=== PATIENT | male | born 1985 | race Caucasian/White ===

== ENCOUNTER 2016-08-08 12:20 | Emergency (ER) | payer OTHER ==
[2016-08-08 12:40] VITALS: BP 115/83
--- NOTE | 2016-08-08 19:35 | ED ---
Bruno Castellano Janilya, scribed for Vin Diane MD on 08/08/16 at 1228 . Substance Abuse/Use - HPI Summary HPI Summary: A 31 y/o male was BIBA for heroin abuse. Pt states that he injected heroin at about 0630 today and went to sleep. Pt complains that he was suddenly awoken and taken here. Pt denies any infection on his arms on site of injection. Per police, pt's parents called the police because pt was not breathing and appeared purple. Pt is given Narcan. - History Of Current Complaint Stated Complaint: OVERDOSE Time Seen by Provider: 08/08/16 12:24 Hx Obtained From: Patient Overdose Characteristics: IV Severity Initially: Moderate Severity Currently: Moderate - Allergies/Home Medications Allergies/Adverse Reactions: Allergies Allergy/AdvReac Type Severity Reaction Status Date / Time No Known Allergies Allergy Verified 07/13/16 17:57 PMH/Surg Hx/FS Hx/Imm Hx Infectious Disease History: Denies: Traveled Outside the [place] in Last 30 Days - Family History Known Family History: Positive: Other - anxiety - Social History Alcohol Use: Weekly Substance Use Type: Reports: Heroin Smoking Status (MU): Current Every Day Smoker Review of Systems Negative: Fever Positive: Anxious All Other Systems Reviewed And Are Negative: Yes Physical Exam Triage Information Reviewed: Yes Vital Signs On Initial Exam: Initial Vitals Temp Pulse Resp BP Pulse Ox 99.1 F 120 20 115/83 96 08/08/16 12:34 08/08/16 12:34 08/08/16 12:34 08/08/16 12:34 08/08/16 12:34 Vital Signs Reviewed: Yes Appearance: Positive: Well-Appearing, No Pain Distress Skin: Positive: Warm, Skin Color Reflects Adequate Perfusion, Dry, Other - Track huang on left antecubital area Head/Face: Positive: Normal Head/Face Inspection Eyes: Positive: Normal ENT: Positive: Normal ENT inspection Neck: Positive: Supple, Nontender Respiratory/Lung Sounds: Positive: Clear to Auscultation, Breath Sounds Present Cardiovascular: Positive: RRR Abdomen Description: Positive: Nontender, Soft Bowel Sounds: Positive: Present Musculoskeletal: Positive: Normal Neurological: Positive: Normal Psychiatric: Positive: Anxious, Other - agitated and angry Diagnostics - Vital Signs Vital Signs Temp Pulse Resp BP Pulse Ox 08/08/16 12:34 99.1 F 120 20 115/83 96 - Laboratory Lab Statement: Any lab studies that have been ordered have been reviewed, and results considered in the medical decision making process. Course/Dx - Course Course Of Treatment: Cornelio Perez presented by EMS and police in an agitated condition. His parents called 911 because he was not breathing and turning purple. EMS found him unresponsive and adminitered narcan which precipitated his current state. He was observed for about 1 hour and 10 minutes until he became too beligerent and walked out refusing all care. He is sober and competant and I have no choice but to honor his wishes. The narcan should be mostly worn off. - Diagnoses Provider Diagnoses: Heroin abuse Discharge - Discharge Plan Condition: Stable Disposition: HOME Additional Instructions: IF YOU CONTINUE TO DO HEROIN, YOU ARE MOST LIKELY TO . The documentation as recorded by the Bruno west Janilya accurately reflects the service I personally performed and the decisions made by me, Vin Diane MD.
== END 2016-08-08 13:09 | disposition home or self-care (01) ==
LOC: ED 12:20
DX: F11.10 Opioid abuse, uncomplicated (principal); F41.9 Anxiety disorder, unspecified; F17.210 Nicotine dependence, cigarettes, uncomplicated
CPT/HCPCS: 99283

== ENCOUNTER 2017-08-14 01:10 | Inpatient (IN) | payer OTHER ==
[2017-08-14] MEDS ORDERED: NS 0.9% 1000 ML* 1,000 ML IV ONE ×3 (01:33→04:05)
[2017-08-14] MEDS ORDERED: LORazepam INJ* 2 MG/ML 1 ML VIAL ONE ×2 (02:10→03:45)
[2017-08-14] MEDS: LORazepam INJ* 2 MG/ML 1 ML VIAL IM ONE ×2 (02:16→03:50)
[2017-08-14] MEDS ORDERED: KETAMINE HCL* 50 MG/ML 10 ML VIAL IM ONE (02:43)
[2017-08-14] MEDS ORDERED: Rocuronium* 10 MG/ML VIAL ONE ×2 (03:05→04:15)
[2017-08-14] MEDS ORDERED: Propofol* 100 ML ONE (03:05)
[2017-08-14] MEDS ORDERED: Rocuronium* 10 MG/ML VIAL IV ONE (04:17)
[2017-08-14 04:19] LABS: ABS Basophils 0 10^3/ul (0-0.2); ABS Eosinophils 0.1 10^3/ul (0-0.6); ABS Monocytes 1.2 10^3/ul (0-0.8); ABS Neutrophils 8.1 10^3/ul (1.5-7.7); ABS Nucleated RBC 0 10^3/ul; Eosinophil % 1.2 % (0-6); Hematocrit 43 % (42-52); Hemoglobin 14.6 g/dl (14.0-18.0); Lymphocyte % 17.1 % (25-47); Mean Corpuscular HGB Conc 34 g/dl (31-36); Mean Corpuscular Hemoglobin 31 pg (27-31); Mean Corpuscular Volume 91 fL (80-94); Mean Platelet Volume 9 um3 (7.4-10.4); Nucleated Red Blood Cells % 0; Platelet Count 268 10^3/ul (150-450); Red Cell Distribution Width 13 % (10.5-15); White Blood Count 11.4 10^3/ul (3.5-10.8)
[2017-08-14 04:24] LABS: Urine Appearance Clear; Urine Blood Negative (Negative); Urine Color Yellow; Urine Ketones Trace (Negative); Urine Protein 1+(30 mg/dL) (Negative); Urine Specific Gravity 1.027 (1.010-1.030); Urine Urobilinogen Negative (Negative)
[2017-08-14 04:34] LABS: EGFR Non-African American 82.7 (>60)
[2017-08-14] MEDS ORDERED: Ondansetron INJ* 2 MG/ML VIAL IV PRN (04:49)
[2017-08-14] MEDS: Propofol* 100 ML IV SCH ×7 (05:20→23:27)
--- NOTE | 2017-08-14 05:56 | ED ---
Tim Castellano Tecjoon, scribed for Augustine Helm MD on 08/14/17 at 0241 . Psychiatric Complaint - HPI Summary HPI Summary: This patient is a 32 year old male brought to [facility] by father with a chief complaint of psychiatric complaint since around [id number]. Patients father states that he exhibited hyperactive behavior around this time and became more and more wound up. Patient started to have motor control issues, losing balance. Father found him on floor. Father reports vomiting. Patient denies headache, abd pain. Patient denies taking more than prescribed amount of drugs. Patient states he smokes weed everyday and smoked marijuana today. HPI Limited due to Level 5 Caveat: AMS - History Of Current Complaint Chief Complaint: EDGeneral Time Seen by Provider: 08/14/17 02:21 Hx Obtained From: Patient Onset/Duration: Gradual Onset, Lasting Hours, Still Present Timing: Constant Severity Currently: Moderate Character: Lethargic, Stuporous Aggravating Factor(s): Nothing Alleviating Factor(s): Nothing - Allergies/Home Medications Allergies/Adverse Reactions: Allergies Allergy/AdvReac Type Severity Reaction Status Date / Time No Known Allergies Allergy Verified 11/24/16 16:31 PMH/Surg Hx/FS Hx/Imm Hx Previously Healthy: Yes - PMHx Limited due to Level 5 Caveat: AMS Endocrine/Hematology History: Denies: Hx Diabetes, Hx Thyroid Disease Cardiovascular History: Denies: Hx Hypertension Respiratory History: Denies: Hx Asthma, Hx Chronic Obstructive Pulmonary Disease (COPD) GI History: Denies: Hx Ulcer EENT History: Denies: Hx Deafness Infectious Disease History: No Infectious Disease History: Denies: Hx Clostridium Difficile, Hx Hepatitis, Hx Human Immunodeficiency Virus (HIV), Hx of Known/Suspected MRSA, Hx Shingles, Hx Tuberculosis, Traveled Outside the [place] in Last 30 Days - Family History Known Family History: Positive: Other - anxiety Negative: Cardiac Disease, Hypertension - Social History Lives: With Family Alcohol Use: Rare Hx Substance Use: Yes Substance Use Type: Reports: Heroin, Marijuana Hx Tobacco Use: Yes Smoking Status (MU): Current Every Day Smoker Review of Systems Negative: Fever Positive: Vomiting. Negative: Abdominal Pain Negative: Headache All Other Systems Reviewed And Are Negative: No - Comments Additional Review of Systems Comments: ROS Limited due to Level 5 Caveat: AMS Physical Exam - Summary Physical Exam Summary: Appearance: repetitive yawning, distressed. Anxious. Unable to redirect. Skin: warm, diaphoretic, reflects adequate perfusion. track huang on right wrist and left antecubital region Head/face: normal Eyes: multidirectional nystagmus, pupils reactive ENT: normal Neck: supple, non-tender Respiratory: CTA, breath sounds present Cardiovascular: tachy/RR, pulses symmetrical Abdomen: non-tender, soft Musculoskeletal: Psychomotor agitation without muscular rigidity. ataxia, nystagmus Neuro: unable to answer questions, not A&O PE Limited due to Level 5 Caveat: AMS Triage Information Reviewed: No Vital Signs On Initial Exam: Initial Vitals Temp Pulse Resp BP Pulse Ox 97.0 F 83 16 143/91 99 08/14/17 01:12 08/14/17 01:12 08/14/17 01:12 08/14/17 01:12 08/14/17 01:12 Vital Signs Reviewed: No Completion Of Physical Exam Limited Due To: Altered Mental Status, Level 5 Appearance: Negative: Well-Appearing, No Pain Distress - pt distressed, anxious , throwing himself about the bed, Signs of Trauma Head/Face: Positive: Normal Head/Face Inspection ENT: Positive: Hearing grossly normal. Negative: Pharyngeal erythema, Nasal congestion, Nasal drainage Neck: Positive: Supple, Nontender Respiratory/Lung Sounds: Positive: Clear to Auscultation, Breath Sounds Present Procedures - Intubation Time of Intubation: 03:10 - Excited delirium/agitation. Given Ativan and ketamine prior and continued to fight and scream Patient was premedicated with propofol and rocuronium 50mg. Done with fiber optic blade # 3 Intubation Method: orotracheal Tube Size (cm): 8.0 Breath Sounds after Intubation: equal Intubation Complications: no complications Post Intubation Xray: Yes - tube in good position Progress/Xray Impression: RSI with propofol, rocuronium. Placed on vent: AC rate 12, 50%, PEEP 5. Diagnostics - Vital Signs Vital Signs Temp Pulse Resp BP Pulse Ox 08/14/17 02:16 22 08/14/17 01:12 97.0 F 83 16 143/91 99 - Laboratory Lab Results: Lab Results 08/14/17 08/14/17 08/14/17 Range/Units 03:20 04:05 04:05 WBC 11.4 H (3.5-10.8) 10^3/ul RBC 4.70 (4.0-5.4) 10^6/ul Hgb 14.6 (14.0-18.0) g/dl Hct 43 (42-52) % MCV 91 (80-94) fL MCH 31 (27-31) pg MCHC 34 (31-36) g/dl RDW 13 (10.5-15) % Plt Count 268 (150-450) 10^3/ul MPV 9 (7.4-10.4) um3 Neut % (Auto) 70.6 (38-83) % Lymph % (Auto) 17.1 L (25-47) % Mclennan % (Auto) 10.7 H (1-9) % Eos % (Auto) 1.2 (0-6) % Baso % (Auto) 0.4 (0-2) % Absolute Neuts (auto) 8.1 H (1.5-7.7) 10^3/ul Absolute Lymphs (auto) 2.0 (1.0-4.8) 10^3/ul Absolute Monos (auto) 1.2 H (0-0.8) 10^3/ul Absolute Eos (auto) 0.1 (0-0.6) 10^3/ul Absolute Basos (auto) 0 (0-0.2) 10^3/ul Absolute Nucleated RBC 0 10^3/ul Nucleated RBC % 0 Patient Temperature Not Reportable ABG pH 7.34 L (7.35-7.45) ABG pH (Temp Correct) Not Reportable ABG pCO2 50 H (35-45) mmHg ABG pCO2 (Temp Corrct Not Reportable ABG pO2 240 H (80-100) mmHg ABG pO2 (Temp Correct Not Reportable ABG HCO3 25.2 (19-31) mmol/L ABG O2 Saturation 100.2 H (95-98) % ABG Base Excess 0.4 (-2.0-2.0) Respiration Rate 12 O2 Delivery Device vent Ventilator Type 550 Vent Mode cmv FiO2 60 Inspiratory Time 1.0 PEEP 5 Pressure Support Not Reportable Pressure Control Not Reportable EPAP Not Reportable IPAP Not Reportable BiPAP Not Reportable Sodium 141 (133-145) mmol/L Potassium 3.7 (3.5-5.0) mmol/L Chloride 110 (101-111) mmol/L Carbon Dioxide 27 (22-32) mmol/L Anion Gap 4 (2-11) mmol/L BUN 16 (6-24) mg/dL Creatinine 1.03 (0.67-1.17) mg/dL Est GFR ( Amer) 106.3 (>60) Est GFR (Non-Af Amer) 82.7 (>60) BUN/Creatinine Ratio 15.5 (8-20) Glucose 83 (70-100) mg/dL Lactic Acid (0.5-2.0) mmol/L Calcium 9.0 (8.6-10.3) mg/dL Total Bilirubin 0.30 (0.2-1.0) mg/dL AST 20 (13-39) U/L ALT 19 (7-52) U/L Alkaline Phosphatase 71 (34-104) U/L Total Creatine Kinase 242 H (10-223) U/L Total Protein 7.2 (6.4-8.9) g/dL Albumin 4.2 (3.2-5.2) g/dL Globulin 3.0 (2-4) g/dL Albumin/Globulin Ratio 1.4 (1-3) Urine Color Urine Appearance Urine pH (5-9) Ur Specific [place] (1.010-1.030) Urine Protein (Negative) Urine Ketones (Negative) Urine Blood (Negative) Urine Nitrate (Negative) Urine Bilirubin (Negative) Urine Urobilinogen (Negative) Ur Leukocyte Esterase (Negative) Urine WBC (Auto) (Absent) Urine RBC (Auto) (Absent) Urine Bacteria (Absent) Urine Glucose (Negative) Urine Ascorbic Acid (Negative) Salicylates < 2.50 (<30) mg/dL Urine Opiates Screen (None Detect) Acetaminophen < 15 mcg/mL Ur Barbiturates Screen (None Detect) Ur Phencyclidine Scrn (None Detect) Ur Amphetamines Screen (None Detect) U Benzodiazepines Scrn (None Detect) Urine Cocaine Screen (None Detect) U Cannabinoids Screen (None Detect) Serum Alcohol < 10 (<10) mg/dL 08/14/17 08/14/17 08/14/17 Range/Units 04:05 04:05 04:05 WBC (3.5-10.8) 10^3/ul RBC (4.0-5.4) 10^6/ul Hgb (14.0-18.0) g/dl Hct (42-52) % MCV (80-94) fL MCH (27-31) pg MCHC (31-36) g/dl RDW (10.5-15) % Plt Count (150-450) 10^3/ul MPV (7.4-10.4) um3 Neut % (Auto) (38-83) % Lymph % (Auto) (25-47) % Mclennan % (Auto) (1-9) % Eos % (Auto) (0-6) % Baso % (Auto) (0-2) % Absolute Neuts (auto) (1.5-7.7) 10^3/ul Absolute Lymphs (auto) (1.0-4.8) 10^3/ul Absolute Monos (auto) (0-0.8) 10^3/ul Absolute Eos (auto) (0-0.6) 10^3/ul Absolute Basos (auto) (0-0.2) 10^3/ul Absolute Nucleated RBC 10^3/ul Nucleated RBC % Patient Temperature ABG pH (7.35-7.45) ABG pH (Temp Correct) ABG pCO2 (35-45) mmHg ABG pCO2 (Temp Corrct ABG pO2 (80-100) mmHg ABG pO2 (Temp Correct ABG HCO3 (19-31) mmol/L ABG O2 Saturation (95-98) % ABG Base Excess (-2.0-2.0) Respiration Rate O2 Delivery Device Ventilator Type Vent Mode FiO2 Inspiratory Time PEEP Pressure Support Pressure Control EPAP IPAP BiPAP Sodium (133-145) mmol/L Potassium (3.5-5.0) mmol/L Chloride (101-111) mmol/L Carbon Dioxide (22-32) mmol/L Anion Gap (2-11) mmol/L BUN (6-24) mg/dL Creatinine (0.67-1.17) mg/dL Est GFR ( Amer) (>60) Est GFR (Non-Af Amer) (>60) BUN/Creatinine Ratio (8-20) Glucose (70-100) mg/dL Lactic Acid 1.4 (0.5-2.0) mmol/L Calcium (8.6-10.3) mg/dL Total Bilirubin (0.2-1.0) mg/dL AST (13-39) U/L ALT (7-52) U/L Alkaline Phosphatase (34-104) U/L Total Creatine Kinase (10-223) U/L Total Protein (6.4-8.9) g/dL Albumin (3.2-5.2) g/dL Globulin (2-4) g/dL Albumin/Globulin Ratio (1-3) Urine Color Yellow Urine Appearance Clear Urine pH 5.0 (5-9) Ur Specific [place] 1.027 (1.010-1.030) Urine Protein 1+(30 mg/dl) H (Negative) Urine Ketones Trace H (Negative) Urine Blood Negative (Negative) Urine Nitrate Negative (Negative) Urine Bilirubin Negative (Negative) Urine Urobilinogen Negative (Negative) Ur Leukocyte Esterase Negative (Negative) Urine WBC (Auto) Trace(0-5/hpf) (Absent) Urine RBC (Auto) Trace(0-2/hpf) (Absent) Urine Bacteria Absent (Absent) Urine Glucose Negative (Negative) Urine Ascorbic Acid * H (Negative) Salicylates (<30) mg/dL Urine Opiates Screen None detected (None Detect) Acetaminophen mcg/mL Ur Barbiturates Screen None detected (None Detect) Ur Phencyclidine Scrn None detected (None Detect) Ur Amphetamines Screen Presumptive positive H (None Detect) U Benzodiazepines Scrn None detected (None Detect) Urine Cocaine Screen Presumptive positive H (None Detect) U Cannabinoids Screen Presumptive positive H (None Detect) Serum Alcohol (<10) mg/dL Result Diagrams: 08/14/17 04:05 08/14/17 04:05 Lab Statement: Any lab studies that have been ordered have been reviewed, and results considered in the medical decision making process. - Radiology CXR Xray Interpretation: Positive (See Comments) Radiology Interpretation Completed By: ED Physician - CXR reveals, per ED Physician, no acute infiltrate, ET tube and OG tube are appropriate. - CT CT Head CT Interpretation: No Acute Changes - CT Head reveals, per radiologist, IMPRESSION: Normal Exam. ED Physician has reviewed this report. CT Interpretation Completed By: Radiologist Re-Evaluation - Re-Evaluation First Eval Change: Worse - more agitated Second Eval Change: Worse - required restraint, first soft then leather Third Eval Change: Worse - requires intubation Fourth Eval Change: Improved - after intubation, but fighting vent Fifth Eval Change: Improved - improved with increased sedation and paralysis Course/Dx - Course Course Of Treatment: Pt grew increasingly more agitated, ataxic and outraged with unprovoked screaming out and thrashing about. He required restraint first with softs then with 4pt leather restraints. He had been medicated with Ativan with no effect and so >3mg/kg IM ketamine was given and had little to no effect. He was straining against the restraints and streaming unintelligibly. He has known drug use hx and tract huang are seen on his arms. He is on Focalin , and its suspected that he has multi-drug ingestion. His CPKs are expected to rise. Given his repetitive yawning, he may have tried to tx opiate withdrawal with other drugs including amphetamines. He is + for amphetamines, cannabis and cocaine. Father gives hx of heroin, crack cocaine abuse in past. He has not been successful with detox/rehab. Head CT neg. Dr. Carrillo present and assisted with intubation -- he will be admitting patient to ICU. Even on vent he was difficult to control. He was increased on his propofol sedation. We re- paralyzed him given the possibility of rising CPKs and resulting rhabdo. Xrays show ETT appropriate. With paralysis and increased sedation vitals have normalized. - Differential Dx/Clinical Impression Differential Diagnosis/HQI/PQRI: Positive: Acute Psychosis, Drug Overdose/ Intentional, Drug Overdose/Unintentional, Other - posterior infarct, rhabdo, hallucinagenic ingestion Provider Diagnosis: Delirium, Multiple drug overdose, Drug abuse and dependence, Elevated CPK, Ataxia - Physician Notifications Discussed Care Of Patient With: Edwin Carrillo - Hospitalist Time Discussed With Above Provider: 04:34 - We discussed patient care with Dr. Carrillo (Hospitalist) and he agrees to admit the patient. - Critical Care Time Critical Care Time: 75-104 min - excludes seperately billable procedures. Includes mult reevaluations, d/w with father, consult and bedside care. Discharge - Discharge Plan Condition: Critical Disposition: ADMITTED TO [facility] Referrals: Abhinav Dickey, VEST BASTER [Primary Care Provider] - The documentation as recorded by the Tim west Tecjoon accurately reflects the service I personally performed and the decisions made by me, Augustine Helm MD.
[2017-08-14] MEDS: Heparin VIAL(*) 5000 UNITS/ML VIAL (FIVE THOUSAND) SUBCUT SCH ×3 (06:17→22:01)
--- NOTE | 2017-08-14 07:32 | RAD ---
INDICATION: Ataxia COMPARISON: None TECHNIQUE: Noncontrast axial source images were acquired from the skull base to the vertex. FINDINGS: Ventricles/sulci: The ventricles and cisterns are normal in size and configuration for age. Brain parenchyma: There is no focal parenchymal finding, evidence of intracranial mass, or intracranial mass effect. Intracranial hemorrhage:None. Extra-axial spaces: There are no abnormal extra axial fluid collections or evidence of extra-axial mass. Calvarium: There is no calvarial fracture or other calvarial abnormality. Scalp: There is no evidence of scalp or extracalvarial soft tissue abnormality. Paranasal sinuses/mastoid: There is minor ethmoid sinus mucosal thickening. The paranasal sinuses and mastoid air cells are otherwise clear. Other: None. IMPRESSION: NO ACUTE INTRACRANIAL FINDINGS
--- NOTE | 2017-08-14 07:34 | RAD ---
INDICATION: Intubation COMPARISON: None TECHNIQUE: An AP portable view obtained at 0330 hours is submitted. FINDINGS: Bones/Soft Tissues: There are no acute bony findings. There is an endotracheal tube in proper position approximately 4 cm above the travon. Nasogastric tube is coiled in the fundus the stomach. Cardiomediastinal: The cardiomediastinal silhouette is normal. Lungs: There are no infiltrates. Pleura: There are no pleural effusions. Other: None IMPRESSION: NO ACTIVE DISEASE. ENDOTRACHEAL TUBE POSITIONED DESCRIBED.
[2017-08-14] MEDS: Pantoprazole IV* 40 MG IV SCH (08:16)
--- NOTE | 2017-08-14 09:55 | HP ---
CC: Abhinav Dickey NP * ADMISSION HISTORY AND PHYSICAL: DATE OF ADMISSION: 08/14/17 PRIMARY CARE PROVIDER: Abhinav Dickey NP HEALTHCARE PROXY: His father. CODE STATUS: Full. SOURCE OF INFORMATION: History obtained from interview with ED provider as well as the patient's father. RELIABILITY: Fair. CHIEF COMPLAINT: Agitation. HISTORY OF PRESENT ILLNESS: This is a 32-year-old man with past medical history most significant for poly-substance abuse including heroin and crack cocaine. Last presentation to the [facility] was 1 year prior to this admission when he was admitted with heroin overdose, left AMA at that time. He has been in his usual state of health, lives at home with his father and his mother. He is relatively withdrawn, but does have meaningful interactions with his parents. His father notes that his perception of the patient's level of sobriety is unlikely accurate as he had thought the patient to be abstinent at this time, but did note "slips" within the last months with both crack cocaine and heroin. The patient's father denies any knowledge of recent fevers or headaches, nausea or vomiting other than when the patient is withdrawing, but none recently. The patient's father notes that earlier in the afternoon, the patient was appearing more "amped up and hyped" and then complained about not feeling well later in the day. The patient felt that it was related to his Focalin and he thought it would wear off, but throughout the day he became progressively more disordered, was losing balance, was dropping items in the kitchen. The father checked on him in his living quarters, found him lying on the floor and decided to bring him to the hospital where he became increasingly agitated on the way the EMS and/or [facility]. On presentation to the hospital , he was noted to have excessive yawning and ataxia associated with nystagmus. He received Ativan, after which he became incredibly agitated requiring ketamine , which had little effect on his agitation. It was felt the patient was no longer able to protect his airway and emergent intubation was performed by this author under the direct supervision of Dr. Helm. PAST MEDICAL HISTORY: Includes polysubstance abuse including IV drug use and crack cocaine, tobacco use, anxiety, depression. MEDICATIONS: Focalin 40 mg daily. ALLERGIES: To no known medications. FAMILY HISTORY: Notable for anxiety. SOCIAL HISTORY: Lives with his mother and his father. Smokes cigarettes. Polysubstance abuse as noted above, although not to consume alcohol. REVIEW OF SYSTEMS: Unable to obtain other than through the patient's father, was notably negative for all systems review. PHYSICAL EXAMINATION GENERAL: Intubated, sedated. VITAL SIGNS: In the emergency room, 138/94; respiratory rate after intubation 13, prior to intubation 20; he is 98% on 60% FiO2 on a PRV; T-max is 98.2. HEART: He has regular rate and rhythm. No murmurs, rubs, or gallops. LUNGS: Clear to auscultation. ABDOMEN: Soft, nontender, nondistended. EXTREMITIES: Warm and well perfused without clubbing, cyanosis, or edema. No skin breakdown except for several small healing lacerations on the feet. NEUROLOGIC: He is A and O x0, sedated on propofol. His skin has track huang on bilateral forearms. His pupils are reactive to light. Otherwise, remainder of exam unable to obtain. DIAGNOSTIC STUDIES/LAB DATA: Data reviewed, notable for urine with amphetamines, cocaine and cannabis. Serum alcohol, acetaminophen and salicylates are currently pending. BUN 16, creatinine 1.0. Lactic acid 1.4. Total creatine is 242. Blood gas; pH 7.3, pCO2 50, pO2 240. White blood cell count is 11.4, predominantly monocytes, hemoglobin 14.6, platelets 268. Data reviewed. Chest CT with appropriately placed ET tube, otherwise no cardiopulmonary disease. Brain CT, official read pending in the a.m., no evidence of intracranial hemorrhage, subdural hemorrhage on this author's interpretation. Please follow up for a complete read in the morning. EKG, normal sinus rhythm, ventricular rate of 82, normal intervals, no ST or T wave changes, flattening of T waves in aVL. ASSESSMENT AND PLAN: This is a 32-year-old man with past medical history including polysubstance abuse to include intravenous drugs and crack cocaine, presenting with progressive ataxia and altered mental status at home, rapidly becoming agitated in the emergency room, complicated by respiratory failure requiring emergent intubation. 1. Agitation. No history or laboratory evidence to suggest underlying infection such as meningitis, encephalitis or other toxic metabolic insults prior to agitation. In the setting of known polysubstance abuse, I do suspect purposeful or accidental ingestion of medication leading to his presentation. His urine toxicology is remarkable for amphetamines, although these are prescribed at that time in addition to cocaine which is clearly illicit. I suspect further information will be forthcoming if we are able to obtain more history should he continue to improve. 2. Respiratory failure in the setting of inability to protect his own airway. Continue sedation. Currently on propofol, fentanyl as needed. The patient has required significant boluses of propofol in the emergency room, may require second agent to achieve adequate sedation in the ICU. IV Protonix as well as oral care. 3. Polysubstance abuse. Check HCV as well as HIV with father's consent. 4. DVT prophylaxis: Heparin subcu. [id number]/CPS #: [id number] AURELIA
[2017-08-14] MEDS: Chlorhexidine MOUTHWASH 0.12%* 15 ML UDC TOPICAL SCH ×4 (10:50→21:32)
--- NOTE | 2017-08-14 14:00 | PN ---
Critical Care Services: 32 y/o male admitted last night with drug OD (unintentional, and involving multiple drugs, predominantly CLIENT SUCCESS MANAGER stimulants), which produced an agitated confusional state that required heavy sedation and mechanical ventilation. Patient has been stable since admission, and there are no other active issues. Vital Signs: Temp Pulse Resp BP SpO2 FiO2 98.2 F 60 21 125/85 100 50 Physical Exam: Gen: Unresponsive (on propofol) HEENT:Pupils midposition and sluggishly reactive Lungs:clear Extremities:no cyanosis or edema Neuro: Moves all extremities with painful stimulus Fluid Balance (Past 24 Hours): 08/14/17 08/15/17 06:59 06:59 Intake Total 50 1000 Balance 50 1000 Weight 176 lb Intake: IV Fluids 1000 NS (0.9%) 1000 Medicated IV 50 CC - Propofol/Diprivan 50 Labs: 08/14/17 06:10 Hepatitis C Antibody Nonreactive HIV 1&2 Antibody Nonreactive Studies: Urine positive for amphetamines, cocaine, and THC. Nutrition: None (other than calories provided by propofol) Impression: Acute delirium from stimulant drug OD - currently stable on sedation with IV propofol and mechanical ventilation. Plan: Maintain current level of support for at least 24 hours, then (tomorrow AM) awaken and remove from ventilator (if possible). Psych evaluation seems warranted in this case because the patient's poor decision making regarding life choices. Patient's parents visited thyis afternoon, and have been informed of the current situation. Critical Care Time: 35 minutes (not including time spent with patient's parents) .
[2017-08-14] MEDS: fentaNYL* 50 MCG/ML 2 ML VIAL (100 MCG VIAL) IV SLOW PU PRN (19:20)
[2017-08-14] MEDS ORDERED: fentaNYL* 50 MCG/ML 2 ML VIAL (100 MCG VIAL) IV SLOW PU ONE (21:26)
[2017-08-14] MEDS ORDERED: Midazolam* 1 MG/ML 10 ML VIAL (10 MG) IV ONE (21:31)
[2017-08-14] MEDS ORDERED: Midazolam IV for DRIP* 100 MG in NS 0.9% 100 ML* 80 ML IV SCH (22:00)
[2017-08-14] MEDS ORDERED: Midazolam PREMIX BAG 1 MG/ML* 100 MG/100 ML BAG IV SCH (22:00)
[2017-08-15] MEDS: Propofol* 100 ML IV SCH ×3 (01:54→06:26)
[2017-08-15] MEDS: Chlorhexidine MOUTHWASH 0.12%* 15 ML UDC TOPICAL SCH ×3 (01:54→08:17)
[2017-08-15] MEDS: fentaNYL* 50 MCG/ML 2 ML VIAL (100 MCG VIAL) IV SLOW PU PRN ×3 (03:03→06:04)
[2017-08-15] MEDS: Heparin VIAL(*) 5000 UNITS/ML VIAL (FIVE THOUSAND) SUBCUT SCH ×3 (05:48→22:26)
[2017-08-15] MEDS ORDERED: Haloperidol INJ IV/IM* 5 MG/ML AMP ONE ×4 (09:33→12:02)
[2017-08-15] MEDS ORDERED: Succinylcholine* 20 MG/ML 10 ML VIAL ONE ×3 (09:44→20:32)
[2017-08-15] MEDS ORDERED: Haloperidol INJ IV/IM* 5 MG/ML AMP IV SLOW PU PRN (10:00)
[2017-08-15] MEDS ORDERED: Midazolam PREMIX BAG 1 MG/ML* 100 MG/100 ML BAG IV SCH ×2 (10:02→22:59)
[2017-08-15] MEDS: Pantoprazole IV* 40 MG IV SCH (10:23)
[2017-08-15] MEDS ORDERED: Haloperidol INJ IV/IM* 5 MG/ML AMP IV SLOW PU ONE ×2 (10:55→12:00)
[2017-08-15] MEDS ORDERED: LORazepam INJ* 2 MG/ML 1 ML VIAL ONE (12:11)
[2017-08-15] MEDS: chlorproMAZINE INJ* 25 MG/ML 2 ML (50 MG) IV SCH ×4 (13:56→16:42)
[2017-08-15] MEDS ORDERED: chlorproMAZINE INJ* 25 MG/ML 2 ML (50 MG) IV PRN (17:06)
--- NOTE | 2017-08-15 17:13 | PN ---
Critical Care Services: Extubated today and patient subsequently became agitated and appeared to be hallucinating - is now calm (sleeping) after 50 mg chlorpromazine (IV). No problems with oxygenation or airway compromise. Vital Signs: Temp Pulse Resp BP SpO2 FiO2 100.4 F 109 24 126/81 97 30 Physical Exam: Gen:When not sedated, is agitated and unaware of surroundings. HEENT:No signs injury Lungs:clear Extremities:No cyanosis or edema Fluid Balance (Past 24 Hours): 08/15/17 06:59 Intake Total 1848 Output Total 1400 Balance 448 Weight 177 lb Intake: IV Fluids 1000 LR NS (0.9%) 1000 Medicated IV 822 CC - Propofol/Diprivan 822 IV Narcotic Infusion 26 Versed 26 Output: Byrd 1400 Labs: None Studies: None Nutrition: None Impression: Continued drug-induced delirium. possibly from amphetamines (? bath salts) Plan: Continue sedation with phenothiazines for now.
[2017-08-15] MEDS ORDERED: chlorproMAZINE INJ* 50 MG in NS 0.9% 50 ML* 50 ML IV PRN (17:24)
[2017-08-15] MEDS ORDERED: Ziprasidone IM INJ* 20 MG/ML VIAL IM ONE (19:50)
[2017-08-15] MEDS ORDERED: fentaNYL* 50 MCG/ML 2 ML VIAL (100 MCG VIAL) IV SLOW PU ONE (19:52)
[2017-08-15] MEDS ORDERED: chlorproMAZINE TAB* 50 MG PO PRN (20:00)
[2017-08-15] MEDS ORDERED: Ziprasidone IM INJ* 20 MG/ML VIAL IM PRN (20:01)
[2017-08-15] MEDS ORDERED: Propofol* 100 ML ONE (20:27)
[2017-08-15] MEDS ORDERED: fentaNYL* 50 MCG/ML 5 ML VIAL (250 MCG VIAL) ONE (20:30)
[2017-08-15] MEDS ORDERED: Etomidate* 2 MG/ML 20 ML VIAL (40 MG) ONE (20:30)
--- NOTE | 2017-08-15 20:39 | PN ---
Progress Note - Progress Note Date of Service: 08/15/17 Note: Patient continued to be restless and agitated. Unfortunately lost IV access. Gave Geodon [address] Canela's request. No significant improvement after 30 minutes. Decision made to intubate. Dr. Baron from ED came up to intubate after IO was in place for sedation. No complications. Propofol ordered. Patient now intubated and sedated. Will remove IO and place peripheral IV. Follow up CXR. Dr. Canela updated.
[2017-08-15] MEDS ORDERED: fentaNYL* 50 MCG/ML 2 ML VIAL (100 MCG VIAL) IV SLOW PU PRN (20:41)
--- NOTE | 2017-08-15 21:46 | RAD ---
INDICATION: Intubation. COMPARISON: Comparison is made with a prior study from one day earlier. TECHNIQUE: 2 portable films of the chest were obtained. FINDINGS: There is an endotracheal tube present with the catheter tip projects over the midline and appears to be located approximately 3.5 cm above the travon. There has been removal of a nasogastric tube present on the prior study. The heart is within normal limits in size. The lungs are clear. No pleural effusion is seen. IMPRESSION: STATUS POST INTUBATION, CLEAR LUNGS.
[2017-08-15] MEDS ORDERED: NS 0.9% 1000 ML* 1,000 ML IV SCH (23:00)
[2017-08-16] MEDS: Propofol* 100 ML IV SCH ×11 (00:36→22:32)
[2017-08-16] MEDS: Chlorhexidine MOUTHWASH 0.12%* 15 ML UDC TOPICAL SCH ×6 (02:53→20:20)
[2017-08-16] MEDS: Heparin VIAL(*) 5000 UNITS/ML VIAL (FIVE THOUSAND) SUBCUT SCH ×3 (05:40→21:11)
[2017-08-16] MEDS ORDERED: Pantoprazole IV* 40 MG IV SCH (09:00)
[2017-08-16 10:06] LABS: ABS Basophils 0 10^3/ul (0-0.2); ABS Eosinophils 0 10^3/ul (0-0.6); ABS Lymphocytes 1.1 10^3/ul (1.0-4.8); ABS Monocytes 0.8 10^3/ul (0-0.8); ABS Neutrophils 6.9 10^3/ul (1.5-7.7); ABS Nucleated RBC 0 10^3/ul; Eosinophil % 0.5 % (0-6); Hematocrit 37 % (42-52); Hemoglobin 12.6 g/dl (14.0-18.0); Lymphocyte % 12.5 % (25-47); Mean Corpuscular HGB Conc 34 g/dl (31-36); Mean Corpuscular Hemoglobin 31 pg (27-31); Mean Corpuscular Volume 90 fL (80-94); Mean Platelet Volume 9 um3 (7.4-10.4); Nucleated Red Blood Cells % 0; Platelet Count 171 10^3/ul (150-450); Red Blood Count 4.07 10^6/ul (4.0-5.4); Red Cell Distribution Width 14 % (10.5-15); White Blood Count 8.9 10^3/ul (3.5-10.8)
[2017-08-16 10:23] LABS: EGFR Non-African American 112.3 (>60)
[2017-08-16] MEDS ORDERED: Ziprasidone IM INJ* 20 MG/ML VIAL IM PRN (11:48)
--- NOTE | 2017-08-16 11:59 | PN ---
Progress Note - Progress Note Date of Service: 08/16/17 Note: CRITICAL CARE MEDICINE Date: 08/16/17 Time: 1030 SUBJECTIVE: Patient seen and examined. parents at bedside updated PHYSICAL EXAM: Vital Signs: Reviewed. Neurologic: Rass -3; pupils eq, reactive. spont brown HEENT: Sclera anicteric. Trachea midline. Cardiovascular: S1 S2, reg. no m. bp stable. Respiratory: clear bl on cmv adjusted to cpap. Fio2 25% Abdomen: Soft, nt. No r/g/r. Extremities: Warm. Access: IO; 2 piv LABS: Reviewed. IMAGING: Reviewed. MEDICATIONS: Reviewed. ASSESSMENT: 32 M Polysubstance overdose Toxic metabolic encephalopathy Acute resp failure sec to above Substance abuse disorder PLAN: Neurologic: maintained at present. low dose versed gtt for now and try to dc later in facvor of intermittent benzos as needed and then can utilize propofol still and see if utility in adding precedex. utilize geodon. fent prn. allow more time. from description of events, may be more bath salts or even spice induced toxic encephalopathy and needing time. Cardiovascular: Perfusing. can continue IVF washout. Respiratory: roshni vent and can allow spont. hopefully can look to liberate tomorrow if encephalopathy better. Gastrointestinal: ogt. consider tf later. sup. Renal/Metabolic: lytes ok. replete prn Infectious Disease: no infective burden Hematology: stable. Endocrine: stable Musculoskeletal: strong at baseline. Psych/Social: parents updated at length Supportive and preventative care as ordered. SUP: ppi VTE prophylaxis: heparin Byrd catheter given critical illness, monitoring needs for accurate assessment of RAFI and KDIGO criteria for critically ill patients and to avoid potential harms of urinary retention, skin breakdown/ulcers. Restraints: Reviewed and required currently Disposition: ICU Code Status: Full Critical Care Time: 35min Mark Corley DO
[2017-08-16] MEDS ORDERED: Thiamine IV* 100 MG/ML 2 ML VIAL IV ONE (12:00)
--- NOTE | 2017-08-16 13:59 | RAD ---
HISTORY: Orogastric tube placement COMPARISONS: August 15, 2012 VIEWS: 1: frontal portable view of the chest at 1:25 PM. The right lung apex is cut off. FINDINGS: LINES AND TUBES: An endotracheal tube is noted with the tip overlying the trachea between the clavicles and the travon. A gastric tube is noted, with the tip in the left upper quadrant in a prepyloric position.. CARDIOMEDIASTINAL SILHOUETTE: The cardiomediastinal silhouette is normal for portable technique. PLEURA: The costophrenic angles are sharp. No pleural abnormalities are noted. LUNG PARENCHYMA: The lungs are clear. ABDOMEN: The upper abdomen is clear. There is no subphrenic gas. BONES AND SOFT TISSUES: No bone or soft tissue abnormalities are noted. IMPRESSION: LINES AND TUBES ABOVE. NO ACTIVE CARDIOPULMONARY DISEASE.
[2017-08-16] MEDS: Ziprasidone * 20 MG CAP (generic Geodon) PO SCH ×2 (15:06→21:11)
[2017-08-16] MEDS: LORazepam INJ* 2 MG/ML 1 ML VIAL IV PUSH PRN (17:57)
[2017-08-16] MEDS: fentaNYL* 50 MCG/ML 2 ML VIAL (100 MCG VIAL) IV SLOW PU PRN (18:58)
[2017-08-17] MEDS: Propofol* 100 ML IV SCH ×6 (00:53→11:57)
[2017-08-17] MEDS: Chlorhexidine MOUTHWASH 0.12%* 15 ML UDC TOPICAL SCH ×4 (00:53→12:43)
[2017-08-17] MEDS: fentaNYL* 50 MCG/ML 2 ML VIAL (100 MCG VIAL) IV SLOW PU PRN ×2 (01:47→12:36)
[2017-08-17] MEDS: LORazepam INJ* 2 MG/ML 1 ML VIAL IV PUSH PRN ×3 (01:57→14:09)
[2017-08-17] MEDS: Heparin VIAL(*) 5000 UNITS/ML VIAL (FIVE THOUSAND) SUBCUT SCH ×2 (05:10→12:36)
[2017-08-17] MEDS ORDERED: Lansoprazole susp Kit 3 MG/ML (30 MG = 10 ML) G TUBE SCH (09:00)
--- NOTE | 2017-08-17 11:42 | PN ---
Progress Note - Progress Note Date of Service: 08/17/17 Note: CRITICAL CARE MEDICINE Date: 08/17/17 Time: 1030 SUBJECTIVE: Patient seen and examined. parents at bedside updated PHYSICAL EXAM: Vital Signs: Reviewed. Neurologic: Rass -3; pupils eq, reactive. spont brown HEENT: Sclera anicteric. Trachea midline. Cardiovascular: S1 S2, reg. no m. bp stable. Respiratory: clear; cpap. Fio2 25% Abdomen: Soft, nt. No r/g/r. Extremities: Warm. Access: 2 piv LABS: Reviewed. IMAGING: Reviewed. MEDICATIONS: Reviewed. ASSESSMENT: 32 M Polysubstance overdose Toxic metabolic encephalopathy Acute resp failure sec to above Substance abuse disorder PLAN: Neurologic: ativan this am. 1/2 propofol. and then see if we can hold off towards liberation. utilize geodon. fent prn. Cardiovascular: Perfusing. dc ivf. Respiratory: roshni vent and can liberate when mentation stable. Gastrointestinal: ogt. tf. sup. Renal/Metabolic: lytes ok. replete prn Infectious Disease: no infective burden Hematology: stable. Endocrine: stable Musculoskeletal: strong at baseline. Psych/Social: parents updated at length Supportive and preventative care as ordered. SUP: ppi VTE prophylaxis: heparin Byrd catheter given critical illness, monitoring needs for accurate assessment of RAFI and KDIGO criteria for critically ill patients and to avoid potential harms of urinary retention, skin breakdown/ulcers. Restraints: Reviewed and required currently Disposition: ICU Code Status: Full Critical Care Time: 35min Mark Corley DO
[2017-08-17] MEDS: Ziprasidone * 20 MG CAP (generic Geodon) PO SCH (12:43)
[2017-08-17] MEDS ORDERED: Ondansetron INJ* 2 MG/ML VIAL IV PRN (14:18)
[2017-08-17] MEDS ORDERED: LORazepam INJ* 2 MG/ML 1 ML VIAL IV PUSH PRN (14:18)
--- NOTE | 2017-08-17 14:26 | PN ---
Progress Note - Progress Note Date of Service: 08/17/17 Note: CRITICAL CARE MEDICINE Date: 08/17/17 Time: 1400 Pt agitated and fumbling about putting on his clothes and stating he needs to leave. He is still confused and disoriented but gaining towards capacity. Explained to him his current medical condition and allowing clearance of meds etc. Will utilize ativan to allow some anxiolytic. He is unsteady on his feet and explained his risk for falls, injury, and of course post extubation complication window still in. He is off monitor and can remain off. His IV is now displaced and removed. Can remain without iv access for now. See if he is willing to work with us. He agrees to try and work with me. parents at bedside trying to help. Disposition: ICU Code Status: Full Critical Care Time: 15min Mark Corley,
[2017-08-17] MEDS ORDERED: LORazepam INJ* 2 MG/ML 1 ML VIAL IM PRN (14:40)
[2017-08-17] MEDS ORDERED: oxyCODONE TAB* 5 MG TAB PO PRN (14:53)
[2017-08-17] MEDS ORDERED: LORazepam TAB(*) 1 MG PO PRN (14:53)
--- NOTE | 2017-08-17 14:58 | PN ---
Progress Note - Progress Note Date of Service: 08/17/17 Note: CRITICAL CARE MEDICINE Date: 08/17/17 Time: 1450 Pt more cooperative but still wanting to leave. Parents present. Asked what his plan was and we discussed him working with us and waiting longer before attempting AMA today since medically he is just off propofol and post extubation for 3 hours and would prefer more time to ensure he is well. He hold capacity otherwise and is agreeable to utilize ativan prn now and see if he can stay and will consider staying the night but otherwise may still leave later today with capacity but ama. Again, parents present for discussion. Disposition: ICU Code Status: Full Critical Care Time: 10min FIvette Corley,
[2017-08-17 18:38] VITALS: BP 128/75
[2017-08-18] MEDS ORDERED: Enoxaparin(*) 40 MG/0.4 ML SYR SUBCUT SCH (09:00)
--- NOTE | 2017-08-18 09:39 | DS ---
CRITICAL CARE MEDICINE DISCHARGE SUMMARY ADMISSION DATE: 08/14/2017 ICU ADMISSION DATE: 08/14/2017 ICU DISCHARGE DATE: 08/17/2017 AMA REFERRING PHYSICIAN: Augustine Helm. DIAGNOSIS: 1. Toxic encephalopathy secondary to polysubstance accidental overdose. 2. Agitation and combative delirium. 3. Acute respiratory failure secondary to above. 4. Drug abuse. MEDICATIONS AT DISCHARGE: None prescribed as patient left against medical advise. ALLERGIES: None. HOSPITAL COURSE: 32 year old male brought to hospital by his parents after being more altered then usual and combative. He is a known drug addict and had taken multiple substances. Difficult to control in emergency room ultimately requiring intubation. Head CT negative. Admitted to ICU. Able to liberate from ventilation when agitation better controlled. However, agitation returned with ongoing encephalopathy. Re-intubated and sedatives utilized. Liberate again on with better control. Patient more appropriate and encephalopathy cleared. He was able to discuss his desires with rational and at no time has desire to hurt self or others. He did admit he is an addict and does not want to be here. He expressed his desired to leave hospital many times. He was negotiated with several times to at least stay until medication and throat stable post extubation dynamics. He complied but would not stay a full 24 hours, which was desired to medically clear and he left against medical advise. DISPOSITION: AMA DIET: Regular. ACTIVITY: As tolerated but not prescribed. CODE STATUS: FULL. FOLLOW UP: advised to follow up his care and addiction needs. Mark Corley DO
== END 2017-08-17 19:15 | disposition left against medical advice (07) | DRG 812 ==
LOC: ED 01:10 → ICU 04:49
PROVIDERS: ADMIT Internal Medicine; ATTEND Internal Medicine Critical Care Medicine
PROC: 5A1945Z Respiratory Ventilation, 24-96 Consecutive Hours (ICD-10-PCS; principal; 2017-08-15)
PROC: 0BH17EZ Insertion of Endotracheal Airway into Trachea, Via Natural or Artificial Opening (ICD-10-PCS; 2017-08-15)
DX: T43.601A Poisoning by unspecified psychostimulants, accidental (unintentional), initial encounter (principal); G92 Toxic encephalopathy; J96.00 Acute respiratory failure, unspecified whether with hypoxia or hypercapnia; F12.90 Cannabis use, unspecified, uncomplicated; F17.200 Nicotine dependence, unspecified, uncomplicated; R45.1 Restlessness and agitation; F41.9 Anxiety disorder, unspecified; R41.0 Disorientation, unspecified; F32.9 Major depressive disorder, single episode, unspecified; R27.0 Ataxia, unspecified; R41.82 Altered mental status, unspecified; F19.10 Other psychoactive substance abuse, uncomplicated; Y92.009 Unspecified place in unspecified non-institutional (private) residence as the place of occurrence of the external cause; Z81.8 Family history of other mental and behavioral disorders
CPT/HCPCS: 36415; 36600; 70450; 71045; 80048; 80053; 80307; 80320; 80329; 81003; 81015; 82550; 82803; 83605; 83735; 83930; 84100; 85025; 86703; 86803; 87641; 93005; 94002; 94003; 94760; A9270-GY; G0480; J0330; J1630; J1644; J2060; J2250; J2704; J3010; J3411; J3480; J3486

== ENCOUNTER 2017-12-10 22:10 | Emergency (ER) | payer OTHER ==
[2017-12-10 22:43] LABS: ABS Basophils 0 10^3/ul (0-0.2); ABS Eosinophils 0.2 10^3/ul (0-0.6); ABS Lymphocytes 1.3 10^3/ul (1.0-4.8); ABS Monocytes 0.7 10^3/ul (0-0.8); ABS Neutrophils 1.8 10^3/ul (1.5-7.7); ABS Nucleated RBC 0 10^3/ul; Eosinophil % 3.8 % (0-6); Hematocrit 37 % (42-52); Hemoglobin 12.4 g/dl (14.0-18.0); Lymphocyte % 31.9 % (25-47); Mean Corpuscular HGB Conc 34 g/dl (31-36); Mean Corpuscular Hemoglobin 31 pg (27-31); Mean Corpuscular Volume 90 fL (80-94); Nucleated Red Blood Cells % 0; Platelet Count 197 10^3/ul (150-450); Red Blood Count 4.04 10^6/ul (4.0-5.4); Red Cell Distribution Width 14 % (10.5-15)
[2017-12-10 22:58] LABS: EGFR Non-African American 90.8 (>60)
[2017-12-10 23:51] LABS: Urine Appearance Cloudy; Urine Blood Negative (Negative); Urine Color Amber; Urine Ketones 1+ (Negative); Urine Protein Negative (Negative); Urine Specific Gravity 1.029 (1.010-1.030); Urine Urobilinogen Positive (Negative)
--- NOTE | 2017-12-11 03:26 | ED ---
Irma Castellano Rebecca, scribed for Jonny Boswell MD on 12/10/17 at 2245 . Psychiatric Complaint - HPI Summary HPI Summary: Pt is a 32 y/o M BIBA accompanied by police who presents to ED after police were called by his mother. Per police, the pt had mentioned SIs to his parents, prompting his mom to call the police. Police state that he was cooperative for them. Pt confirms that he is having SIs and that he is currently angry. Sx aggravated and alleviated by nothing. Additionally notes mild insomnia the last few days, secondary to an increase in his stimulant medication dose. Denies pain. Has been compliant with medications. - History Of Current Complaint Chief Complaint: EDAltMentalStatus Hx Obtained From: Patient, Other: - Police Onset/Duration: Still Present Character: Angry Aggravating Factor(s): Nothing Alleviating Factor(s): Nothing Associated Signs And Symptoms: Positive: Sleep Disturbance - mild insomnia Related History: Positive For: Prior Psychiatric Issues - Adhd Has Suicidal: Reports: Thoughts - Allergies/Home Medications Allergies/Adverse Reactions: Allergies Allergy/AdvReac Type Severity Reaction Status Date / Time No Known Allergies Allergy Verified 11/24/16 16:31 PMH/Surg Hx/FS Hx/Imm Hx Endocrine/Hematology History: Denies: Hx Diabetes, Hx Thyroid Disease Cardiovascular History: Denies: Hx Hypertension Respiratory History: Denies: Hx Asthma, Hx Chronic Obstructive Pulmonary Disease (COPD) GI History: Denies: Hx Ulcer Sensory History: Denies: Hx Contacts or Glasses, Hx Deafness, Hx Hearing Aid Opthamlomology History: Denies: Hx Contacts or Glasses Psychiatric History: Reports: Hx Attention Deficit Hyperactivity Disorder, Hx Substance Abuse Infectious Disease History: No Infectious Disease History: Denies: Hx Clostridium Difficile, Hx Hepatitis, Hx Human Immunodeficiency Virus (HIV), Hx of Known/Suspected MRSA, Hx Shingles, Hx Tuberculosis, Traveled Outside the [place] in Last 30 Days - Family History Known Family History: Positive: Other - anxiety Negative: Cardiac Disease, Hypertension - Social History Alcohol Use: Unsure Hx Substance Use: Yes Substance Use Type: Reports: Cocaine, Heroin, Marijuana Hx Tobacco Use: Yes Smoking Status (MU): Current Every Day Smoker Review of Systems Positive: Other - Insomnia Positive: Other - NEGATIVE: Pain Positive: Other - Angry, SIs All Other Systems Reviewed And Are Negative: Yes Physical Exam - Summary Physical Exam Summary: VITAL SIGNS: Reviewed. GENERAL: ~Patient is a well-developed and nourished male who is cooperative but angry. Patient is not in any acute respiratory distress. HEAD AND FACE: No signs of trauma. No ecchymosis, hematomas or skull depressions. No sinus tenderness. EYES: PERRLA, EOMI x 2, No injected conjunctiva, no nystagmus. EARS: Hearing grossly intact. Ear canals and tympanic membranes are within normal limits. MOUTH: Oropharynx within normal limits. CHEST: Symmetric, no tenderness at palpation LUNGS: Clear to auscultation bilaterally. No wheezing or crackles. CVS: Regular rate and rhythm, S1 and S2 present, no murmurs or gallops appreciated. EXTREMITIES: FROM in all major joints, no edema, no cyanosis or clubbing. NEURO: Alert and oriented x 3. No acute neurological deficits. Speech is normal and follows commands. SKIN: Dry and warm Triage Information Reviewed: Yes Vital Signs On Initial Exam: Initial Vitals Temp Pulse Resp BP Pulse Ox 99.9 F 78 18 150/96 100 12/10/17 22:22 12/10/17 22:22 12/10/17 22:22 12/10/17 22:22 12/10/17 22:22 Vital Signs Reviewed: Yes Diagnostics - Vital Signs Vital Signs Temp Pulse Resp BP Pulse Ox 12/10/17 22:22 99.9 F 78 18 150/96 100 - Laboratory Result Diagrams: 12/10/17 22:35 12/10/17 22:35 Lab Statement: Any lab studies that have been ordered have been reviewed, and results considered in the medical decision making process. Course/Dx - Course Assessment/Plan: Pt is a 32 y/o M BIBA accompanied by police who presents to ED after police were called by his mother due to SIs. Police state that he was cooperative for them. Pt confirms that he is having SIs and that he is currently angry. Additionally notes mild insomnia the last few days, secondary to an increase in his stimulant medication dose. Denies pain. Has been compliant with medications. Medically cleared for MHE at 0005. Upon completion of MHE and consultation with Dr. Good, it has been determined that the pt will be D/C with a Dx of substance induced mood disorder and referred for outpatient follow up. - Differential Dx/Clinical Impression Provider Diagnosis: Substance induced mood disorder Discharge - Sign-Out/Discharge Documenting (check all that apply): Discharge/Admit/Transfer - Discharge - Discharge Plan Condition: Stable Disposition: HOME Referrals: Abhinav Dickey, QUALITY MANAGER [Primary Care Provider] - The documentation as recorded by the Irma west Rebecca accurately reflects the service I personally performed and the decisions made by me, Jonny Boswell MD.
--- NOTE | 2017-12-11 11:59 | ED ---
Niko Castellano Gabriel, ericed for Everardo Fontenot on 12/11/17 at 1134 . Progress - Progress Note Progress Note: This patient was signed out from Dr. Boswell, pending disposition, awaiting MHE. MHE reveals the pt is stable and can be discharged with mood disorder. The patients condition is stable and will be discharged to home with Dx of mood disorder. - Consult/PCP Time Called: 22:10 Course/Dx - Course Course Of Treatment: This patient was signed out from Dr. Boswell, pending disposition, awaiting MHE. MHE reveals the pt is stable and can be discharged with mood disorder. The patients condition is stable and will be discharged to home with Dx of mood disorder. - Diagnoses Provider Diagnoses: Mood disorder Discharge - Sign-Out/Discharge Documenting (check all that apply): Discharge/Admit/Transfer - Discharge Plan Condition: Stable Disposition: HOME Patient Education Materials: Mood Disorders (ED) Referrals: Abhinav Dickey, MOBILE DESIGNER [Primary Care Provider] - The documentation as recorded by the Niko west Gabriel accurately reflects the service I personally performed and the decisions made by Corie gonzalez Emmanuel.
[2017-12-11 12:03] VITALS: BP 128/73
== END 2017-12-11 11:30 | disposition home or self-care (01) ==
LOC: ED 22:10
DX: F19.94 Other psychoactive substance use, unspecified with psychoactive substance-induced mood disorder (principal); F90.9 Attention-deficit hyperactivity disorder, unspecified type; F17.200 Nicotine dependence, unspecified, uncomplicated
CPT/HCPCS: 36415; 80053; 80307; 80320; 80329; 81003; 84443; 85025; 99284; G0480

== ENCOUNTER 2018-11-12 21:50 | Emergency (ER) | payer OTHER ==
[2018-11-12 22:05] VITALS: BP 137/87
--- NOTE | 2018-11-12 22:09 | UC ---
Throat Pain/Nasal Torin HPI - HPI Summary HPI Summary: This patient is a 33-year-old male who presents to the urgent care with with a chief complaint that he significant other was diagnosed with strep pharyngitis. The patient has been kissing her significant other today therefore he was to be treated for possible strep pharyngitis. - History of Current Complaint Stated Complaint: SORE THROAT Time Seen by Provider: 11/12/18 21:59 Hx Obtained From: Patient Severity: Mild - Allergies/Home Medications Allergies/Adverse Reactions: Allergies Allergy/AdvReac Type Severity Reaction Status Date / Time No Known Allergies Allergy Verified 11/24/16 16:31 Home Medications: Home Medications Dextroamphetamine/Amphetamine [Adderall 30 mg-] 60 mg PO DAILY 11/12/18 [ History Confirmed 11/12/18] Tranylcypromine Sulfate [Parnate] 40 mg PO DAILY 11/12/18 [History Confirmed ] clonazePAM TAB(*) [KlonoPIN TAB(*)] 0.5 mg PO TID PRN MDD 3 11/12/18 [History Confirmed 11/12/18] PMH/Surg Hx/FS Hx/Imm Hx Previously Healthy: Yes - Surgical History Surgical History: Unable to Obtain/Confirm - Family History Known Family History: Positive: Other - anxiety Negative: Cardiac Disease, Hypertension - Social History Alcohol Use: Unsure Substance Use Type: Cocaine, Heroin, Marijuana Smoking Status (MU): Current Every Day Smoker - Immunization History Most Recent Influenza Vaccination: unknown Most Recent Pneumonia Vaccination: unknown Review of Systems All Other Systems Reviewed And Are Negative: Yes Constitutional: Positive: Negative Skin: Positive: Negative Eyes: Positive: Negative ENT: Positive: Negative Respiratory: Positive: Negative Cardiovascular: Positive: Negative Gastrointestinal: Positive: Negative Genitourinary: Positive: Negative Motor: Positive: Negative Neurovascular: Positive: Negative Musculoskeletal: Positive: Negative Neurological: Positive: Negative Psychological: Positive: Negative Is Patient Immunocompromised?: No Physical Exam - Summary Physical Exam Summary: Vital signs: reviewed General: Patient is comfortable lying in stretcher with no signs of distress HEENT: within normal limits Lungs: CTA B/L CVS: S1 & S2 present. No murmurs appreciated. ABDOMEN: Soft, non-tender. No signs of distention. No rebound no guarding, and no masses palpated. Bowel sounds are normal. EXTREMITIES: FROM in all major joints, no edema, no cyanosis or clubbing. NEURO: Alert and oriented x 3. No acute neurological deficits. Speech is normal and follows commands. SKIN: Dry and warm ABDOMEN: Soft, non-tender. No signs of distention. No rebound no guarding, and no masses palpated. Bowel sounds are normal. EXTREMITIES: FROM in all major joints, no edema, no cyanosis or clubbing. NEURO: Alert and oriented x 3. No acute neurological deficits. Speech is normal and follows commands. SKIN: Dry and warm Throat Pain/Nasal Course/Dx - Course Course Of Treatment: Since the patient has been kissing her significant other will has been diagnosed with strep pharyngitis the patient will be given a prescription for Augmentin. The patient is hemodynamically stable alert and oriented 3. - Differential Dx/Diagnosis Provider Diagnosis: Strep pharyngitis Discharge - Sign-Out/Discharge Documenting (check all that apply): Patient Departure All imaging exams completed and their final reports reviewed: No Studies - Discharge Plan Condition: Stable Disposition: HOME Patient Education Materials: Strep Throat (ED) Referrals: Abhinav Dickey NP [Primary Care Provider] - Additional Instructions: Take medications as instructed. Follow-up with the primary care physician the next 2 days. Return to the urgent care if symptoms worsen. - Billing Disposition and Condition Condition: STABLE Disposition: Home
[2018-11-12] MEDS ORDERED: Amoxicillin/Clavulanate TAB* 875 MG PO ONE (22:11)
== END 2018-11-12 22:20 | disposition home or self-care (01) ==
LOC: UCEAST 21:50
DX: J02.0 Streptococcal pharyngitis (principal); F17.200 Nicotine dependence, unspecified, uncomplicated
CPT/HCPCS: 99212; A9270-GY; G0463

== ENCOUNTER 2019-03-05 18:38 | Emergency (ER) | payer OTHER ==
[2019-03-05 18:47] VITALS: BP 125/80
--- NOTE | 2019-03-05 20:13 | UC ---
Hand/Wrist HPI - HPI Summary HPI Summary: 33 yo male with swelling and pain of right MCP joint x 1-2 mos he is right handed no known trauma no overlying skin injuries - History Of Current Complaint Chief Complaint: UCUpperExtremity Stated Complaint: SWOLLEN HAND Time Seen by Provider: 03/05/19 19:46 Hx Obtained From: Patient Onset/Duration: Gradual Onset, Lasting Weeks, Worse Since - x 2-3 days Severity Initially: Mild Severity Currently: Moderate Pain Intensity: 6 Pain Scale Used: 0-10 Numeric Character Of Pain: Dull, Aching, Spasmodic Aggravating Factor(s): Movement Alleviating Factor(s): Rest, OTC Meds Associated Signs And Symptoms: Positive: Swelling Related History: Dominant Hand Right Hands: 1 - tender and swollen, not red or warm, FROM - Allergies/Home Medications Allergies/Adverse Reactions: Allergies Allergy/AdvReac Type Severity Reaction Status Date / Time No Known Allergies Allergy Verified 03/05/19 18:47 PMH/Surg Hx/FS Hx/Imm Hx Previously Healthy: Yes - Surgical History Surgical History: None - Family History Known Family History: Positive: Other - anxiety Negative: Cardiac Disease, Hypertension - Social History Alcohol Use: Rare Substance Use Type: Marijuana Smoking Status (MU): Light Every Day Tobacco Smoker - Immunization History Most Recent Influenza Vaccination: unknown Most Recent Pneumonia Vaccination: unknown Review of Systems All Other Systems Reviewed And Are Negative: Yes Constitutional: Positive: Negative Skin: Positive: Negative Eyes: Positive: Negative ENT: Positive: Negative Respiratory: Positive: Negative Cardiovascular: Positive: Negative Gastrointestinal: Positive: Negative Genitourinary: Positive: Negative Motor: Positive: Negative Neurovascular: Positive: Negative Musculoskeletal: Positive: Arthralgia - R 3rd MCP Neurological: Positive: Negative Psychological: Positive: Negative Physical Exam Triage Information Reviewed: Yes Appearance: Well-Appearing, No Pain Distress, Well-Nourished Vital Signs: Initial Vital Signs Temp 99 F 03/05/19 18:41 Pulse 81 03/05/19 18:41 Resp 12 03/05/19 18:41 BP 125/80 03/05/19 18:41 Pulse Ox 99 03/05/19 18:41 Vital Signs Reviewed: Yes Eyes: Positive: Conjunctiva Clear ENT: Positive: Hearing grossly normal. Negative: Nasal congestion, Nasal drainage, Trismus, Muffled voice, Dental tenderness Neck: Positive: Supple, Nontender Respiratory: Positive: Lungs clear, Normal breath sounds, No respiratory distress Cardiovascular: Positive: RRR, No Murmur Musculoskeletal: Positive: ROM Intact, Edema @ - right 3rd MCP, Other: - see image Neurological: Positive: Alert Psychological Exam: Normal Skin Exam: Normal Diagnostics - Radiology No standard instances Radiology Interpretation Completed By: ED Physician Summary of Radiographic Findings: R hand: no fx noted, + sts Hand/Wrist Course/Dx - Differential Dx/Diagnosis Provider Diagnosis: Pain, joint, hand, right Discharge - Sign-Out/Discharge Documenting (check all that apply): Patient Departure All imaging exams completed and their final reports reviewed: No - Discharge Plan Condition: Stable Disposition: HOME Prescriptions: Ibuprofen TAB* [Motrin TAB*] 600 mg PO QID PRN #40 tab PRN Reason: Pain Patient Education Materials: Swollen Joint (ED) Referrals: lCinton Chacon MD [Medical Doctor] - As Soon As Possible Additional Instructions: warm soaks with RANGE OF MOTION DISCUSSED - Billing Disposition and Condition Condition: STABLE Disposition: Home
--- NOTE | 2019-03-06 11:14 | UC ---
- Progress Note Progress Note: RADIOLOGY REPORT REVIEWED. SOFT TISSUE SWELLING, NO FRACTURE IS SEEN. NO CHANGE IN MANAGEMENT. Course/Dx - Diagnoses Provider Diagnoses: Pain, joint, hand, right Discharge - Sign-Out/Discharge Documenting (check all that apply): Post-Discharge Follow Up All imaging exams completed and their final reports reviewed: Yes - Discharge Plan Condition: Stable Disposition: HOME Prescriptions: Ibuprofen TAB* [Motrin TAB*] 600 mg PO QID PRN #40 tab PRN Reason: Pain Patient Education Materials: Swollen Joint (ED) Referrals: Clinton Chacon MD [Medical Doctor] - As Soon As Possible Additional Instructions: warm soaks with RANGE OF MOTION DISCUSSED - Billing Disposition and Condition Condition: STABLE Disposition: Home
== END 2019-03-05 20:31 | disposition home or self-care (01) ==
LOC: UCEAST 18:38
DX: M25.541 Pain in joints of right hand (principal); F41.9 Anxiety disorder, unspecified; F17.210 Nicotine dependence, cigarettes, uncomplicated
CPT/HCPCS: 99211; G0463

== ENCOUNTER 2019-11-02 17:43 | Emergency (ER) | payer OTHER ==
--- OUTSIDE RECORDS SUMMARY | 2019-11-02 17:48 | XMS REPORT ---
:1985 Author Name KLAUS CHURCHILL Address [address] [facility] [address] [place] [address] Care Team Providers Name Role Phone KLAUS CHURCHILL Primary Care Physician Unavailable Allergies, Adverse Reactions, Alerts Allergy Code CodeSystem Reaction Severity Criticality Status Start Substance Date Moderate Medications Medication Medication Medication Start Stop Route Dose Status Fill Code CodeSystem Date Date Instructions RxNorm Relevant diagnostic tests/laboratory data Narrative No Information Procedures Procedure Code CodeSystem Target Date of Status Service Device Device Device Name Site Procedure Delivery Code Name UID Location SNOMED-CT () 2019-09-07 completed [facility] [address] [place], [address] [id number] SNOMED-CT () 2019-09-19 completed [facility] [address] [place], [address] [id number] SNOMED-CT () 2019-09-07 completed [facility] [address] [place], [address] [id number] SNOMED-CT () 2019-09-19 completed [facility] [address] [place], [address] [id number] Encounters/Encounter Diagnoses Encounter Encounter Diagnosis Diagnosis Diagnosis Date of Service Name Code Code Name CodeSystem Diagnosis Delivery Location Assessment H0001 SNOMED-CT 2019-09-19 [facility] [address] [place], [address] Vital Signs No Information Social History Element Description Description Start End Code CodeSystem AdditionalInfo Date Date SexAssignedAtBirth Male 1985-0 M AdministrativeGender 8 Hospital Discharge Instructions Reason For Referral Medical Equipment FDA Assessments
[2019-11-02 17:50] VITALS: BP 154/87
--- NOTE | 2019-11-02 18:58 | UC ---
Dental HPI - HPI Summary HPI Summary: 2 DAYS OF RIGHT UPPER DENTAL PAIN AND SWELLING. STATES A FILLING FELL OUT ABOUT A WEEK AGO. NO FEVER. - History of Current Complaint Chief Complaint: UCDentalProblem Stated Complaint: DENTAL COMPLAINT Time Seen by Provider: 11/02/19 18:06 Hx Obtained From: Patient Onset/Duration: Gradual Onset, Lasting Days, Still Present Severity: Moderate Pain Intensity: 6 Pain Scale Used: 0-10 Numeric Aggravating Factor(s): Heat, Cold, Chewing Alleviating Factor(s): Nothing - Allergies/Home Medications Allergies/Adverse Reactions: Allergies Allergy/AdvReac Type Severity Reaction Status Date / Time No Known Allergies Allergy Verified 11/02/19 17:50 Home Medications: Home Medications Dextroamphetamine/Amphetamine [Adderall 30 mg-] 60 mg PO DAILY 11/12/18 [ History Confirmed 11/02/19] clonazePAM TAB(*) [Klonopin TAB(*)] 0.5 mg PO TID PRN MDD 3 11/12/18 [History Confirmed 11/02/19] Ibuprofen TAB* [Motrin TAB* 600 MG] 600 mg PO QID PRN #40 tab 03/05/19 [Rx Confirmed 11/02/19] Vitamin B Complex CAP* [B Complex CAP*] 03/11/19 [History] Amoxicillin/Clavulanate TAB* [Augmentin TAB 875*] 875 mg PO BID #20 tab [Rx] Chlorhexidine MW 0.12% 473ML* [Peridex Mouth Wash 0.12%*] 15 ml SWISH SPIT BID # 1 bottle 11/02/19 [Rx] PMH/Surg Hx/FS Hx/Imm Hx Psychological History: Anxiety, Depression - Surgical History Surgical History: None - Family History Known Family History: Positive: Other - anxiety Negative: Cardiac Disease, Hypertension - Social History Alcohol Use: Rare Substance Use Type: Marijuana Smoking Status (MU): Light Every Day Tobacco Smoker - Immunization History Most Recent Influenza Vaccination: unknown Most Recent Pneumonia Vaccination: unknown Review of Systems All Other Systems Reviewed And Are Negative: Yes Constitutional: Positive: Negative ENT: Positive: Dental Pain Respiratory: Positive: Negative Cardiovascular: Positive: Negative Gastrointestinal: Positive: Negative Physical Exam Triage Information Reviewed: Yes Appearance: Well-Appearing, Well-Nourished, Pain Distress - MILD/MOD Vital Signs: Initial Vital Signs Temp 97.8 F 11/02/19 17:47 Pulse 98 11/02/19 17:47 Resp 20 11/02/19 17:47 BP 154/87 11/02/19 17:47 Pulse Ox 100 11/02/19 17:47 Vital Signs Reviewed: Yes Eyes: Positive: Conjunctiva Clear ENT: Positive: Hearing grossly normal, Pharynx normal Dental: Positive: Gross Decay/Caries @, Abscess @ - RIGHT UPPER Neck: Positive: Supple, Nontender, No Lymphadenopathy Respiratory: Positive: No respiratory distress, No accessory muscle use Cardiovascular: Positive: Pulses Normal Abdomen Description: Positive: Soft Musculoskeletal: Positive: No Edema Psychological: Positive: Age Appropriate Behavior Skin: Negative: Rashes Procedures - Incision and Drainage Right Upper Site: RIGHT UPPER GUMLINE Instrument(s): Needle - 18 GAUGE Dental Complaint Course/Dx - Course Course Of Treatment: TIME OUT COMPLETE. RIGHT UPPER DENTAL ABSCESS OPENED USING AN 18-GAUGE NEEDLE. SMALL AMOUNT OF PUS ASPIRATED. COPIOUS PUS EXPRESSED MANUALLY. AUGMENTIN TWICE DAILY FOR 10 DAYS. PERIDEX MOUTH RINSE. IBUPROFEN FOR DISCOMFORT. FOLLOW-UP WITH A DENTIST LUBA. - Differential Dx/Diagnosis Provider Diagnosis: Dental abscess Discharge ED - Sign-Out/Discharge Documenting (check all that apply): Patient Departure All imaging exams completed and their final reports reviewed: No Studies - Discharge Plan Condition: Stable Disposition: HOME Prescriptions: Amoxicillin/Clavulanate TAB* [Augmentin TAB 875*] 875 mg PO BID #20 tab Chlorhexidine MW 0.12% 473ML* [Peridex Mouth Wash 0.12%*] 15 ml SWISH SPIT BID # 1 bottle Patient Education Materials: Dental Abscess (ED) Referrals: Abhinav Dickey MERCHANDISE CARRIER [Primary Care Provider] - If Needed Additional Instructions: TAKE THE ANTIBIOTICS FOR THE FULL COURSE. RINSE YOUR MOUTH WITH WATER AFTER EATING OR DRINKING ANYTHING. ANTISEPTIC MOUTH RINSE TWICE DAILY. TAKE IBUPROFEN NEEDED FOR PAIN. FOLLOW-UP WITH A DENTIST LUBA. IBUPROFEN MAX DOSE: 600MG (3 TABS) EVERY 6 HRS OR 800MG (4 TABS) EVERY 8 HRS OR NAPROXEN MAX DOSE: 440MG (2 TABS) EVERY 12 HRS TYLENOL MAX DOSE: 1000MG (2 EXTRA STRENGTH TABS) EVERY 8 HRS OR 650MG (2 REGULAR TABS) EVERY 6 HRS DENTISTS [facility] DDS Dentist Office [address], [place] [address] Clinton Church, DDS [address], [place] [address] Navi Guido D.D.S. [address] [facility] [address], [place] [address] Opens at 8am ORAL SURGERY [facility] Sanchez Ch, DMD [address] [place] [address] [facility] Guzman Gan Jr., MarisaD.S. [address] [facility], [address] [place] [address] [facility] Eliezer Pappas, RIKKIS [address], [place] [address] - Billing Disposition and Condition Condition: STABLE Disposition: Home
== END 2019-11-02 18:56 | disposition home or self-care (01) ==
LOC: UCEAST 17:43
DX: K04.7 Periapical abscess without sinus (principal); F41.9 Anxiety disorder, unspecified; Z79.899 Other long term (current) drug therapy; F17.200 Nicotine dependence, unspecified, uncomplicated
CPT/HCPCS: 10060; 41800; 99212; G0463